=== PATIENT | female | born 1950 | race Caucasian/White ===

== ENCOUNTER → 2017-05-19 | Outpatient (CLI) | payer MEDICARE, BC ==
[2017-05-19 14:03] LABS: HEMOGLOBIN 13.8 g/dL (12.2-16.2); LYMPH # 1.7 K/mm3 (0.7-4.5); LYMPH % 27.5 % (10-50.0)
--- NOTE | 2017-05-19 14:07 | RADIOLOGY REPORT PS360 ---
HAND-RT 3 VIEWS HISTORY: Right hand pain ARTHRITIS ORDERING PHYSICIAN: Chace Saucedo MD PATIENT AGE: 66 years COMPARISON: None FINDINGS: No fracture or dislocation. No lytic or blastic change. There is normal mineralization. The joint spaces are well-preserved. No significant degenerative/arthritic changes. No erosive changes evident. Has been prior ORIF of the distal radius IMPRESSION: Negative right hand
--- NOTE | 2017-05-19 14:08 | RADIOLOGY REPORT PS360 ---
HAND-LT-3 VIEWS HISTORY: ARTHRITIS ORDERING PHYSICIAN: Chace Saucedo MD PATIENT AGE: 66 years COMPARISON: None FINDINGS: No fracture or dislocation. No lytic or blastic change. There is normal mineralization. The joint spaces are well-preserved. No significant degenerative/arthritic changes. No erosive changes evident. IMPRESSION: Negative left hand
[2017-05-19 15:01] LABS: BUN 12 mg/dL (7-18)
[2017-05-19 15:03] LABS: GFR (ESTIMATED) 83 ML/MIN (59-)
[2017-05-20 08:43] LABS: RA Latex Turbid. <10.0 IU/mL (0.0-13.9)
[2017-05-20 16:36] LABS: Antinuclear Antibodies, IFA Negative (.)
== END ==
LOC: LAB 13:18
PROVIDERS: Internal Medicine Adolescent Medicine
DX: M19.049 Primary osteoarthritis, unspecified hand (principal); E78.5 Hyperlipidemia, unspecified; E03.9 Hypothyroidism, unspecified

== ENCOUNTER → 2017-10-20 | Outpatient (CLI) | payer MEDICARE, BC ==
[2017-10-20 13:39] LABS: LYMPH # 1.7 K/mm3 (0.7-4.5); LYMPH % 27.1 % (10-50.0)
[2017-10-20 13:47] LABS: HEMOGLOBIN 12.5 g/dL (12.2-16.2)
[2017-10-20 14:37] LABS: BUN 10 mg/dL (7-18)
[2017-10-20 14:43] LABS: GFR (ESTIMATED) 83 ML/MIN (59-)
== END ==
LOC: CARL-LAB 07:04
PROVIDERS: Internal Medicine Adolescent Medicine
DX: L40.50 Arthropathic psoriasis, unspecified (principal)